=== PATIENT | female | born 1995 | race Caucasian/White ===

== ENCOUNTER → 2020-11-20 09:42 | Outpatient (CLI) | payer OTHER, SELFPAY ==
--- NOTE | 2020-11-20 09:44 | DI.US.S_ITS ---
PROCEDURE: US OB <= 14 WEEKS FETUS INDICATIONS: DATING AND VIABILITY OUTSIDE/PRIOR DATING DATA: Last menstrual period (LMP): 09/09/2019. LMP-based estimated date of delivery (BABITA): 06/15/2021. First dating scan (date and location): 11/20/2020 Estimated date of delivery (BABITA) from first dating scan: 06/29/2021. TECHNIQUE: Real-time scanning was performed of the fetus and maternal pelvic organs, with image documentation. Endovaginal scanning was also performed to better visualize the fetus and maternal ovaries. COMPARISON: None. FINDINGS: Embryo: Single live intrauterine is identified with crown-rump length measuring 1.9 cm corresponding to 8 weeks 3 days Heart rate: 168 beats per minute Maternal organs: Ovaries are unremarkable. IMPRESSION: 1. Single live intrauterine with ultrasound gestational age 8 weeks 3 days. Dictated by: Silvia Walters M.D. on 11/23/2020 at 14:33 Approved by: Silvia Walters M.D. on 11/23/2020 at 14:34
== END ==
PROVIDERS: PCP Family Medicine; Referring Provider Specialist; Visit Provider Specialist
DX: Z34.81 Encounter for supervision of other normal pregnancy, first trimester (principal); Z3A.08 8 weeks gestation of pregnancy
CPT/HCPCS: 76801; 76817

== ENCOUNTER → 2020-11-26 12:26 | Outpatient (CLI) | payer OTHER, SELFPAY ==
[2020-11-26 14:10] LABS: Add Manual Diff / Slide Review NO; Basophils Absolute Auto 0 /uL (0-100); Basophils Percent Auto 0.4 % (0-2); Eosinophils Absolute Auto 0 /uL (0-450); Eosinophils Percent Auto 0.4 % (2-4); Hematocrit 38.8 % (36-46); Hemoglobin 13.3 g/dL (12.0-16.0); Lymphocytes Absolute Auto 1700 /uL (1100-4500); Lymphocytes Percent Auto 15.9 % (25-40); Mean Corpuscular HGB Conc 34.2 % (30-36); Mean Corpuscular Hemoglobin 29.9 PG (26-34); Mean Corpuscular Volume 87.2 fL (80-100); Monocytes Absolute Auto 700 /uL (0-900); Monocytes Percent Auto 6.6 % (3-14); Neutrophils Absolute Auto 8100 /uL (1500-7000); Neutrophils Percent Auto 76.7 % (50-75); Platelet Count 317 X10^3/uL (150-400); Red Blood Cell Count 4.45 X10^6/uL (4.0-5.2); White Blood Cell Count 10.6 X10^3/uL (4.5-11.0)
[2020-11-26 14:20] LABS: Appearance Urine UA CLEAR; Bilirubin Urine UA NEGATIVE (NEGATIVE); Color Urine UA YELLOW; Glucose Urine UA NEGATIVE (Negative); Ketones Urine UA NEGATIVE (NEGATIVE); Leukocyte Esterase Urine UA NEGATIVE (NEGATIVE); Nitrite Urine UA NEGATIVE (Negative); Occult Blood Urine UA TRACE-INTACT (Negative); Protein Urine UA NEGATIVE (Negative); Specific Gravity Urine UA 1.015 (1.000-1.035); Urobilinogen Urine UA 0.2 E.U./dL (0.2)
[2020-11-26 14:24] LABS: pH Urine UA 7.5 (4.5-8.0)
[2020-11-26 15:56] LABS: Urine N gonorrhoeae NOT DETECTED
[2020-11-26 16:33] LABS: Urine Chlamydia NOT DETECTED
[2020-11-26 17:23] LABS: HIV 1 & 2 Ab/Ag 4th Gen Combo NEGATIVE (NEGATIVE); Hep C Virus Ab w/Reflex Quant NEGATIVE s/c (NEGATIVE); Hepatitis B Surface Antigen NEGATIVE s/c (NEGATIVE)
[2020-11-27 09:31] LABS: RPR Screen Non Reactive (Non Reactive); Varicella IgG Antibody <135 index (Immune >165)
== END ==
PROVIDERS: PCP Family Medicine; Referring Provider Specialist; Visit Provider Specialist
DX: Z34.81 Encounter for supervision of other normal pregnancy, first trimester (principal); Z3A.09 9 weeks gestation of pregnancy
CPT/HCPCS: 36415; 80055; 81003; 86787; 86803; 86850; 86900; 86901; 87086; 87389; 87491; 87591

== ENCOUNTER → 2021-01-28 11:26 | Outpatient (CLI) | payer OTHER, SELFPAY ==
[2021-02-01 14:34] LABS: AFP, Serum 29.9 ng/mL (.); Estriol, Free 1.35 ng/mL (.); Inhibin A, Dimeric 263.02 pg/mL (.); Inhibin A, MoM 1.58 (.); Maternal Ethnicity Caucasian (.); Maternal Weight 190 lbs (.); Number of Fetuses No (.); OSBR Risk 1 IN 10000 (.); Results Report (.); Test Results *Screen Positive* (.); hCG, MoM 1.91 (.); hCG, Serum 40566 mIU/mL (.)
== END ==
PROVIDERS: PCP Family Medicine; Referring Provider Specialist; Visit Provider Specialist
DX: Z34.82 Encounter for supervision of other normal pregnancy, second trimester (principal); Z3A.18 18 weeks gestation of pregnancy
CPT/HCPCS: 36415; 82105; 82677; 84702; 86336

== ENCOUNTER → 2021-02-09 12:42 | Outpatient (CLI) | payer OTHER, SELFPAY ==
--- NOTE | 2021-02-09 12:43 | DI.US.S_ITS ---
PROCEDURE: US OB >= 14 WEEKS FETUS INDICATIONS: ANATOMY OUTSIDE/PRIOR DATING DATA: Last menstrual period (LMP): 09/08/20 . LMP-based estimated date of delivery (BABITA): 06/15/21 First dating scan (date and location): 11/20/20 Estimated date of delivery (BABITA) from first dating scan: 06/29/21 TECHNIQUE: Real-time scanning was performed of the fetus, with image documentation and biometric measurements. Endovaginal scanning: NOT PERFORMED COMPARISON: [facility], , OB >= 14 WEEKS FETUS, 01/28/2021, 11:17. FINDINGS: General: A single living intrauterine gestation is present. Presentation: Variable Placenta: Placental position is anterior, without previa. Amniotic fluid index: 17.0 cm, normal range is 5-24 cm. heart rate: 145 beats per minute. Maternal cervical canal: 6.2 cm long. Normal lower limit is 2.5 cm. biometrics: Biparietal diameter: 4.4 cm, 19 weeks 2 days Head circumference: 16.7 cm, 19 weeks 2 days Abdominal circumference: 14.6 cm, 19 weeks 2 days Femur length: 3.3 cm, 20 weeks 1 day Estimated gestational age from initial scan: 20 weeks 0 days Composite gestational age from present scan: 19 weeks 5 days Estimated weight and percentile: 322 g, 42nd percentile Measurement variability for biometric dating: +/- 7 days from 14 weeks to 15 weeks 6 days gestation, +/- 10 days from 16 weeks to 21 weeks 6 days gestation, +/- 2 weeks from 22 weeks to 27 weeks 6 days gestation, +/- 3 weeks for 28 weeks gestation or later. weight reference: 4500 g or EFW >90/95% is considered macrosomia or large for gestational age. EFW <10% is small for gestational age. EFW 5% or less is considered intra-uterine growth restriction. Anatomic survey: Neuro: Ventricles are non-dilated at less than 10 mm. Cisterna magna is normal at 3-11 mm. Cerebellum is normal in size and morphology. Nuchal skin fold: Normal at less than 6 mm between 14-21 weeks gestational age. Face: Nose and lips, facial profile are normal. Spine: No evidence for spina bifida. Heart: Not well seen secondary to body habitus/gestational position. The ventricular outflow tracts appear grossly normal. Diaphragm: Diaphragm is intact. Stomach: Left-sided stomach is present. Kidneys: No hydronephrosis. Normal is less than 5 mm in 2nd trimester, less than 7 mm in 3rd trimester. Cord: 3-vessel cord has orthotopic insertion. Bladder: Normal in size. Extremities: All 4 extremities identified. IMPRESSION: Single living intrauterine fetus in variable presentation. Expected interval growth. Four-chamber heart not well seen. Recommend follow-up. The remainder of the anatomic survey within normal limits Dictated by: Kaleb Oreilly M.D. on 02/09/2021 at 16:29 Approved by: Kaleb Oreilly M.D. on 02/09/2021 at 16:33
== END ==
PROVIDERS: PCP Family Medicine; Referring Provider Specialist; Visit Provider Specialist
DX: Z34.82 Encounter for supervision of other normal pregnancy, second trimester (principal); Z3A.19 19 weeks gestation of pregnancy
CPT/HCPCS: 76811

== ENCOUNTER → 2021-04-02 12:24 | Outpatient (CLI) | payer OTHER, SELFPAY ==
[2021-04-02 14:31] LABS: Hematocrit 31.5 % (36-46); Hemoglobin 10.9 g/dL (12.0-16.0)
[2021-04-02 15:06] LABS: GTT (PREG) 1 Hour PP 50gm Dose 137 mg/dL (76-139)
== END ==
PROVIDERS: PCP Family Medicine; Referring Provider Specialist; Visit Provider Specialist
DX: Z34.82 Encounter for supervision of other normal pregnancy, second trimester (principal); Z3A.26 26 weeks gestation of pregnancy
CPT/HCPCS: 36415; 82950; 85014; 85018

== ENCOUNTER → 2021-06-03 10:14 | Outpatient (CLI) | payer OTHER, SELFPAY ==
[2021-06-04 13:42] LABS: Strep Grp B PCR NEG for Grp B Strep
== END ==
PROVIDERS: PCP Family Medicine; Visit Provider Obstetrics & Gynecology
DX: Z34.83 Encounter for supervision of other normal pregnancy, third trimester (principal); Z3A.36 36 weeks gestation of pregnancy
CPT/HCPCS: 87653

== ENCOUNTER 2021-06-22 05:44 | Inpatient (IN) | payer OTHER, SELFPAY ==
[2021-06-22] MEDS: LACTATED RINGERS 1,000 ML 100 ML IV (06:20)
[2021-06-22 06:51] LABS: Add Manual Diff / Slide Review NO; Basophils Absolute Auto 0 /uL (0-100); Basophils Percent Auto 0.4 % (0-2); Eosinophils Absolute Auto 100 /uL (0-450); Eosinophils Percent Auto 0.7 % (2-4); Hematocrit 32.2 % (36-46); Hemoglobin 11.2 g/dL (12.0-16.0); Lymphocytes Absolute Auto 2000 /uL (1100-4500); Lymphocytes Percent Auto 21.4 % (25-40); Mean Corpuscular HGB Conc 34.8 % (30-36); Mean Corpuscular Hemoglobin 30.6 PG (26-34); Monocytes Absolute Auto 700 /uL (0-900); Monocytes Percent Auto 7.1 % (3-14); Neutrophils Absolute Auto 6600 /uL (1500-7000); Neutrophils Percent Auto 70.4 % (50-75); Platelet Count 156 X10^3/uL (150-400); Red Blood Cell Count 3.66 X10^6/uL (4.0-5.2); Red Cell Distribution Width 13.9 % (11.6-14.8); White Blood Cell Count 9.4 X10^3/uL (4.5-11.0)
--- NOTE | 2021-06-22 07:19 | PM.PREOP ---
Pre-operative Note COVID-19 COVID-19 status: Result pending Result date/Date tested (Pos, Neg/Pending): 06/22/21 Criteria for continued procedure: Non-surgical alternatives not available or appropriate per current SOC Interval Note History & Physical reviewed/Exam performed by Physician: Yes Changes to H&P: No
--- NOTE | 2021-06-22 07:22 | SUR.OPER ---
Supine on Padded OR bed, head on pillow, safety belt at thigh, arms secured on padded arm boards at <90 degrees abduction. Bump under right buttock. Legs uncrossed with pillow under knees, gel pad to heels, tape over blanket to lower legs.
[2021-06-22 07:32] LABS: COVID19 -Nasal RAPID Negative (Negative)
[2021-06-22 07:43] VITALS: BP 118/81
[2021-06-22] MEDS: CEFAZOLIN 2 GM/20 ML SYRINGE IV (08:19)
--- NOTE | 2021-06-22 08:33 | SUR.OPER ---
Viable baby girl born at 0832 via
[2021-06-22 09:11] VITALS: BP 118/79; BP 134/80; PULSE 90; PULSE 93; RESP 15; TEMP 36.2; O2SAT 15; O2SAT 99
--- NOTE | 2021-06-22 09:13 | PM.OP.1 ---
Operative Date/Time/Diagnoses Date of procedure: 06/22/21 Time of procedure: 09:13 Pre-op diagnosis: 39 week gestation with prior section for repeat section Post-op diagnosis: same Procedure & Clinicians Procedure: Repeat low-transverse section Same procedure as scheduled: Yes Indications: 39 weeks with prior section Surgeon: Helga Jesus Coat Padder: Jade Ang Yes if Unassisted: No Anesthesia Type: Spinal Operative Notes Findings: Normal tubes, ovaries, uterus. Viable female infant with Apgars of 9 and 9. Closure Type: primary Specimen(s): none sent Applied: catheter (Duncan) Estimated Blood Loss (mL): 600 Blood products transfused: none Procedure in detail: The patient was brought to the operating room where she underwent a spinal for anesthesia. She was placed in a supine position with a left lateral tilt. A Duncan catheter was placed. Pulsatile stockings were placed and functional throughout the case. 2 g of Ancef were given IV prior to the incision. Warming was in place. The patient was prepped and draped in usual sterile fashion. A low transverse incision was made with a scalpel and the incision was carried down to the fascial layer which was incised transversely with scissors. The library circulation assistant did her side of the incision. The midline attachments are superiorly and inferiorly. The rectus muscles were in the midline and the peritoneal incision was made with no damage to internal structures. The peritoneum was incised and superiorly and inferiorly. The incision was stretched with the surgeon and library circulation assistant placing traction. Bladder blade was placed and a bladder flap was developed and the bladder held away from the lower uterine segment. An incision was made in the uterus with the scalpel and the incision was extended with stretching. The head was elevated out of the abdomen with assistance with the vacuum extractor and with fundal pressure by the library circulation assistant the baby was delivered. The infant was bulb suctioned for clear fluid, the cord was clamped after 1 minute and the baby handed off to the warmer. Cord blood was collected. The placenta delivered spontaneously with traction. The uterus was cleaned with clean laps. The uterine incision was closed in 2 layers of 0 chromic suture the first a running locking layer the second an imbricating layer. The library circulation assistant was helping to expose the incision. The bladder peritoneum was repaired with 2-0 Vicryl suture. The gutters were cleaned of any remaining fluids and ovaries and tubes were observed to be normal. Adequate hemostasis was noted. The perineum was closed with 2-0 Vicryl suture. The fascia layer was closed with 0 Vicryl suture with 2 stitches. The library circulation assistant repairing half the incision with helping to retract and expose the incision for the other half. The incision was irrigated and adequate hemostasis obtained with the Bovie. The incision was closed with interrupted 3-0 Vicryl sutures and then a subcuticular stitch of 4-0 Vicryl suture. Steri-Strips were placed. The uterus was massaged to remove any clots. The patient went to recovery room in good condition. Counts of instruments and sponges were correct. Dr. Jenkins was present throughout the case to assist with retraction, fundal pressure to deliver the infant, and suturing half the fascia. Complications: none Post-operative Condition: stable Disposition: other ( Center) Plan for aftercare: Routine post section
[2021-06-22 09:16] VITALS: BP 118/79; PULSE 93; RESP 15; O2SAT 100
[2021-06-22 09:21] VITALS: BP 129/81; PULSE 101; RESP 16; O2SAT 99
[2021-06-22 09:26] VITALS: BP 121/66; PULSE 99; RESP 15; TEMP 36; O2SAT 99
--- NOTE | 2021-06-22 09:27 | SUR.PHASEI ---
Report called to Radha BETHEA. opportunity for questions given. Pt returning to Rm 4 in LD. Pt updated on plan of care and is agreeable.
[2021-06-22] MEDS: KETOROLAC 30 MG/ML VIAL IV ×2 (14:52→22:48)
[2021-06-22] MEDS: ONDANSETRON 4 MG/2 ML INJ IV (15:11)
[2021-06-22] MEDS: ACETAMINOPHEN 325 MG TABLET 650 MG PO (18:15)
[2021-06-23] MEDS: LANOLIN OINT 7 GM 1 APPLIC TOP ×2 (04:49→08:43)
[2021-06-23] MEDS: ACETAMINOPHEN 325 MG TABLET 650 MG PO (04:50)
[2021-06-23] MEDS: KETOROLAC 30 MG/ML VIAL IV (05:03)
[2021-06-23 05:31] LABS: Add Manual Diff / Slide Review NO; Basophils Absolute Auto 0 /uL (0-100); Basophils Percent Auto 0.2 % (0-2); Eosinophils Absolute Auto 0 /uL (0-450); Eosinophils Percent Auto 0.2 % (2-4); Hematocrit 27.9 % (36-46); Hemoglobin 9.6 g/dL (12.0-16.0); Lymphocytes Absolute Auto 2300 /uL (1100-4500); Lymphocytes Percent Auto 16.6 % (25-40); Mean Corpuscular HGB Conc 34.3 % (30-36); Mean Corpuscular Hemoglobin 30.5 PG (26-34); Mean Corpuscular Volume 89.1 fL (80-100); Monocytes Absolute Auto 1100 /uL (0-900); Neutrophils Absolute Auto 10300 /uL (1500-7000); Platelet Count 147 X10^3/uL (150-400); Red Blood Cell Count 3.13 X10^6/uL (4.0-5.2); Red Cell Distribution Width 13.9 % (11.6-14.8); White Blood Cell Count 13.7 X10^3/uL (4.5-11.0)
[2021-06-23] MEDS: FERROUS SULFATE 325 MG TABLET PO (08:44)
[2021-06-23] MEDS: DOCUSATE 100 MG CAPSULE 200 MG PO (08:44)
[2021-06-23] MEDS: IBUPROFEN 600 MG TABLET PO ×2 (08:44→16:10)
--- NOTE | 2021-06-23 13:32 | PM.OBPN.1 ---
Subjective - OB Subjective Patient comments: pain well controlled [place] baby status: nursing well [place] feeding status: exclusively breast feeding Date Patient Seen: 06/23/21 Time Patient Seen: 13:33 Interval history: Patient is postoperative day 1 repeat low-transverse section. She is urinating and ambulating well. She is passing gas. Pain is under control. Bleeding is minimal. No headaches, scotomata, epigastric pain. Exam Vital Signs (past 8 hours): Blood pressure 114/73, pulse 92, temperature 98.5? Oxygen Delivery Method Room Air Narrative Exam Narrative: Abdomen is soft, nontender. Uterus is firm, at U, nontender. Dressing is clean, dry, intact. Mild lochia. Extremities without edema and nontender. Objective Labs Result Diagrams: 06/23/21 05:10 Labs: Laboratory Results - last 24 hr 06/23/21 05:10 WBC 13.7 H RBC 3.13 L Hgb 9.6 L Hct 27.9 L MCV 89.1 MCH 30.5 MCHC 34.3 RDW 13.9 Plt Count 147 L Neut % (Auto) 75.0 Lymph % (Auto) 16.6 L [place] % (Auto) 8.0 Eos % (Auto) 0.2 L Baso % (Auto) 0.2 Neut # (Auto) 78248 H Lymph # (Auto) 2300 [place] # (Auto) 1100 H Eos # (Auto) 0 Baso # (Auto) 0 Assessment & Plan Plan day: 1 plan OB: routine postop care Time Spent With Patient Time: Total time spent is greater than 50% in coordination of care (as documented) at patient's floor/unit and/or counseling patient: Time with patient: less than 15 minutes
[2021-06-23 16:10] VITALS: TEMP 36.8
[2021-06-23 17:00] VITALS: TEMP 36.8
[2021-06-24] MEDS: ACETAMINOPHEN 325 MG TABLET 650 MG PO (01:08)
[2021-06-24] MEDS: IBUPROFEN 600 MG TABLET PO ×2 (01:08→10:26)
--- NOTE | 2021-06-24 08:10 | PM.OBDS.1 ---
Discharge Providers Provider Date of admission: 06/22/21 05:44 Discharge Date: 06/24/21 Primary care physician: Mahin Rocha MD Consults: 06/22/21 09:33 Consult to [employer] Routine Comment: Discharge provider: Helga Jesus MD Summary Hospital Course Date Patient Seen: 06/24/21 Time Patient Seen: 08:11 Diagnoses: Repeat low-transverse section Hospital Course: Patient was admitted on 06/22/2021 for repeat low-transverse section at 39 weeks. She denies headaches, scotomata, epigastric pain. She is urinating and ambulating well. Pain is under control. She is passing gas. Peripartum Data Delivery Method: Section (Repeat) Procedures: Repeat low-transverse section 1: Gender: Female Disposition of : home Discharge Diagnosis (1) Acute on chronic blood loss anemia: Status: Acute (2) Delivery by section using transverse incision of lower segment of uterus: Status: Acute Status at Discharge Cognitive/behavioral status at discharge: oriented Functional status at discharge: independent ambulation Overall status at discharge: patient is progressing back to baseline Time Spent with Patient Time attestation: Total time spent providing and/or coordinating discharge services: Time spent: Less than 30 minutes Objective Labs Result Diagrams: 06/23/21 05:10 Exam Vital Signs (past 8 hours): Blood pressure 112/83, pulse of 88, temperature 97.9? Oxygen Delivery Method Room Air Narrative Exam Narrative: Abdomen is soft, nontender. Uterus is firm, at U, nontender. Dressing is clean, dry, intact. Mild lochia. Extremities with trace edema and nontender. Patient's blood type is B positive, she is rubella immune, she received Tdap in the 3rd trimester. Discharge Plan Discharge Plan Patient Disposition: Home Discharge orders & Medications Prescriptions: New ibuprofen 600 mg Tablet 600 mg PO Q6H PRN (Reason: Fever/Mild Pain (1-3)) Qty: 20 0RF oxycodone 5 mg tablet 5 mg PO Q4H PRN (Reason: pain) Qty: 20 0RF ferrous gluconate 324 mg (37.5 mg iron) tablet 648 mg PO BID Qty: 60 0RF Continued prenat.vits,stormy,[id number] Tablet 1 tab PO DAILY 0RF Follow up/Referrals: Mahin Rocha MD [Primary Care Provider] - Helga Jesus MD [Physician] - 1 Week (Aquacel removal) Diet/Activity/Treatments Diet: Regular Activity: Nothing in vagina or lifting over 20 lb for 6 weeks Skin/Wound/Dressing Care Report to your healthcare provider any signs of infection, such as:: chills, fever, increased pain and unusual redness Dressing: Leave dressing on until 1 week postop exam Discharge Data Primary Care Provider: Mahin Rocha
[2021-06-24] MEDS: FERROUS SULFATE 325 MG TABLET PO (10:26)
[2021-06-24] MEDS: DOCUSATE 100 MG CAPSULE 200 MG PO (10:26)
[2021-06-24 11:10] VITALS: BP 123/84; PULSE 101; RESP 16; TEMP 36.3
== END 2021-06-24 13:00 | disposition home or self-care (01) | DRG 787 ==
PROVIDERS: Admitting Provider Specialist; PCP Family Medicine; Referring Provider Specialist; Visit Provider Specialist
PROC: 10D00Z1 Extraction of Products of Conception, Low, Open Approach (ICD-10-PCS; CPT 59514; principal; 2021-06-22 07:45)
DX: O34.211 Maternal care for low transverse scar from previous cesarean delivery (principal); D62 Acute posthemorrhagic anemia; Z37.0 Single live birth; Z3A.39 39 weeks gestation of pregnancy; O99.02 Anemia complicating childbirth; D64.89 Other specified anemias
CPT/HCPCS: 36415; 59050; 59510; 59514; 85025; 86850; 86900; 86901; 87635; C9803; J0690; J1100; J1885; J2274; J2405; J2590; J3010